=== PATIENT | male | born 1965 | race Caucasian/White ===

== ENCOUNTER 2020-07-01 11:21 | Emergency (ER) | payer BC ==
[2020-07-01 11:25] VITALS: BP 161/87; PULSE 72; TEMP 98.4; BMI 22.5
== END 2020-07-01 13:51 | disposition home or self-care (01) ==
LOC: JER 11:21
DX: T81.31XA Disruption of external operation (surgical) wound, not elsewhere classified, initial encounter (principal)
CPT/HCPCS: 99282-25

== ENCOUNTER 2020-07-16 22:17 | Emergency (ER) | payer BC ==
[2020-07-16 22:27] VITALS: BP 143/83; PULSE 79; TEMP 97.7; BMI 23.0
[2020-07-16 23:00] LABS: BASO % 2.2 % (0-2.0); EOS % 1.8 % (0-4.5); HEMATOCRIT 42.9 % (35.4-49); HEMOGLOBIN 14.7 GM/dl (11.7-16.9); LYMPH % 22.1 % (8-40); MCH 31.8 pg (25.7-33.7); MCHC 34.4 g/dl (32.0-35.9); MEAN CELL VOLUME 92.6 fl (80-96); MEAN PLT VOLUME 9.7 fl (7.5-11.1); MONO % 14.1 % (3.8-10.2); NEUT % 59.8 % (42.8-82.8); PLATELET COUNT 159 K/MM3 (134-434); RBC 4.63 M/mm3 (4.00-5.60); RDW 12.5 % (11.9-15.9); WHITE BLOOD COUNT 4.2 K/mm3 (4.0-10.8)
[2020-07-16 23:04] LABS: ALBUMIN 4.6 g/dl (3.4-5.0); BILIRUBIN,TOTAL 0.5 mg/dl (0.2-1); CALCIUM 9.7 mg/dl (8.5-10); CREATININE 0.9 mg/dl (0.55-1.3); TOT PROT 7.3 g/dl (6.4-8.2)
[2020-07-16] MEDS ORDERED: AMOX TR/POT CLAV 875MG/125MG TABLETS (FP) PO ONE (23:06)
[2020-07-16] MEDS ORDERED: AMOX TR/POT CLAV 875MG/125MG TABLETS (FP) ONE (23:10)
[2020-07-18 04:22] LABS: SARS-CoV-2 NAA Not Detected (Not Detected)
== END 2020-07-16 23:16 | disposition home or self-care (01) ==
LOC: FER 22:17
DX: S31.30XA Unspecified open wound of scrotum and testes, initial encounter (principal)
CPT/HCPCS: 36415; 80053; 81003; 85025; 87040; 87077; 87086; 99284-25; C9803; U0003; U0005